=== PATIENT | female | born 1975 | race African-American/Black ===

== ENCOUNTER 2018-12-11 12:30 | Emergency (ER) | payer BC ==
[~2018-12-11] VITALS: Ht 162.6 cm; Wt 71.4 kg
[2018-12-11 12:33] VITALS: Ht 162.6 cm; Wt 71.4 kg
--- NOTE | 2018-12-11 12:54 | ERD ---
ER Documentation Chief Complaint Chief Complaint R side abd pain denies n/v since saturday This is a 43-year-old female with no significant past medical history who is presenting with 2 to 3 days of waxing and waning moderate sharp and aching right lower abdominal pain. She reports intermittent episodes of nausea but no vomiting. She is not currently nauseated. She has not had any diarrhea or constipation. She denies any black or bloody or tarry stools. She does not remember eating anything out of the ordinary. She denies dysuria or hematuria or urgency or frequency. She does not endorse any vaginal complaints. She did have a Pap smear this year and reports abnormal menses since then, but she is not currently with any vaginal bleeding. She does not endorse any vaginal burning or discharge or pain. The patient reports taking ibuprofen at home with some improvement. She does not recall any other alleviating or exacerbating factors. This is not happened before. The patient denies feeling sick recently. The patient denies fever or chills. The patient has had no headache or vision changes. The patient does not endorse neck or back pain. The patient denies lightheadedness or dizziness. The patient has had no chest pain or trouble breathing. The patient has had no focal deficits. The patient has had no weakness or numbness or tingling to the face or extremities. ROS All systems reviewed and are negative except as per history of present illness. Allergies Allergies: Coded Allergies: No Known Allergy (Unverified , 12/11/18) PMhx/Soc Medical and Surgical Hx: pt denies Medical Hx, pt denies Surgical Hx History of Surgery: No Hx Neurological Disorder: No Hx Respiratory Disorders: No Hx Cardiac Disorders: No Hx Psychiatric Problems: No Hx Miscellaneous Medical Probl: No Hx Alcohol Use: No Hx Substance Use: No Hx Tobacco Use: No FmHx Family History: No diabetes Physical Exam Vitals Vital Signs Date Temp Pulse Resp B/P (MAP) Pulse Ox O2 O2 Flow FiO2 Time Delivery Rate 12/11/18 97.6 61 20 130/69 100 12:33 (89) Physical Exam Const: No acute distress Head: Atraumatic Eyes: Normal Conjunctiva ENT: Normal External Ears, Nose and Mouth. Neck: Full range of motion. No meningismus. Resp: Clear to auscultation bilaterally Cardio: Regular rate and rhythm, no murmurs Abd: Soft, non distended. Right lower quadrant and suprapubic abdominal discomfort without exquisite tenderness. No rebound or guarding. Normal bowel sounds Skin: No petechiae or rashes Back: No midline or flank tenderness Ext: No cyanosis, or edema Neur: Awake and alert Psych: Normal Mood and Affect Result Diagram: 12/11/18 1313 12/11/18 1312 Results 24 hrs Laboratory Tests Test 12/11/18 13:12 12/11/18 13:13 12/11/18 13:22 Urine Color YELLOW Urine Clarity HAZY Urine pH 5 Urine Specific [place] 1.015 Urine Ketones NEGATIVE mg/dL Urine Nitrite NEGATIVE mg/dL Urine Bilirubin NEGATIVE mg/dL Urine Urobilinogen NEGATIVE mg/dL Urine Leukocyte Esterase 2+ Rolando/ul Urine Microscopic RBC 0-2 /HPF Urine Microscopic WBC 10-25 /HPF Urine Squamous Epithelial Cells FEW /HPF Urine Bacteria FEW /HPF Urine Mucus RARE /HPF Urine Hemoglobin NEGATIVE mg/dL Urine Glucose 1+ mg/dL Urine Total Protein NEGATIVE mg/dl Sodium Level 140 mmol/L Potassium Level 3.7 mmol/L Chloride Level 109 mmol/L Carbon Dioxide Level 23 mmol/L Anion Gap 8 Blood Urea Nitrogen 6 mg/dl Creatinine 0.76 mg/dl Est Glomerular Filtrat > 60 mL/min Rate mL/min Glucose Level 83 mg/dl Calcium Level 9.2 mg/dl Total Bilirubin 0.5 mg/dl Direct Bilirubin 0.00 mg/dl Indirect Bilirubin 0.5 mg/dl Aspartate Amino 45 IU/L Transf (AST/SGOT) Alanine 35 IU/L Aminotransferase (ALT/SGPT) Alkaline Phosphatase 113 IU/L Total Protein 8.3 g/dl Albumin 4.4 g/dl Globulin 3.90 g/dl Albumin/Globulin Ratio 1.12 Lipase 30 U/L White Blood Count 7.1 10^3/ul Red Blood Count 4.03 10^6/ul Hemoglobin 10.1 g/dl Hematocrit 33.0 % Mean Corpuscular Volume 81.9 fl Mean Corpuscular Hemoglobin 25.1 pg Mean Corpuscular 30.6 g/dl Hemoglobin Concent Red Cell Distribution Width 17.6 % Platelet Count 361 10^3/UL Mean Platelet Volume 10.1 fl Immature Granulocytes % 0.100 % Neutrophils % 67.3 % Lymphocytes % 25.2 % Monocytes % 6.4 % Eosinophils % 0.7 % Basophils % 0.3 % Nucleated Red Blood Cells % 0.0 /100WBC Immature Granulocytes # 0.010 10^3/ul Neutrophils # 4.8 10^3/ul Lymphocytes # 1.8 10^3/ul Monocytes # 0.5 10^3/ul Eosinophils # 0.1 10^3/ul Basophils # 0.0 10^3/ul Nucleated Red Blood Cells # 0.0 10^3/ul POC Beta HCG, Qualitative NEGATIVE Procedures/MDM MDM The patient's presentation warrants further investigation. Previous medical records, if available, were reviewed. LABS The patient's laboratory testing was obtained and reviewed. No emergent treatment was required unless described below. CBC: No E/o systemic infection or thrombocytopenia. Normocytic anemia, not emergent. Chemistry: No E/o severe acidosis or alkalosis or renal failure or liver disease or diabetic ketoacidosis Lipase: No E/o pancreatitis Urine: E/o acute infection without hematuria IMAGING Imaging and Radiology interpretation reviewed. US PELVIS FINDINGS: The uterus is anteverted in position and measures approximately 12.0 x 7.5 x 9.6 cm. There is a 5.0 cm intramural fibroid of the right side of the uterine body. There is a 5.3 cm intramural fibroid of the ventral aspect of the uterine body. Background uterine myometrium is heterogeneous. The endometrial complex is homogeneous in echogenicity and measures 12 mm in thickness. The cervix is normal. There is no free pelvic fluid. The right and left ovaries are symmetric in size with Doppler flow. The right ovary measures 3.5 x 2.0 x 4.1 cm (15 cc). The left ovary measures 2.3 x 1.6 x 1.3 cm (2.5 cc). There is a dominant 1.9 cm follicle within the right ovary. IMPRESSION: Enlarged heterogeneous fibroid uterus. Electronically viewed and signed by .Naomi Irwin MD, on 12/11/2018 15:40 TREATMENT/DISPOSITION The patient presents with right lower abdominal pain. The patient's abdominal exam is benign. She does not have any rebound or guarding. The patient's blood work is reassuring. I have very low suspicion for appendicitis at this time and I do not feel that CT imaging is required currently. The patient does not endorse any vaginal bleeding or burning or discharge or pain. I do not suspect a sexually transmitted infection or PID. A pelvic ultrasound was completed to assess for the possibility of ovarian cyst versus torsion. The ultrasound was reassuring. They did reveal an ovarian cyst and uterine fibroids. However, I do not suspect ovarian torsion. I have decreased suspicion for tubo-ovarian abscess. The patient's urinalysis is concerning for possible urinary tract infection. This will be treated in an outpatient setting. The patient does not have any evidence of peritonitis. The patient does not have clinical symptoms concerning for mesenteric ischemia or ischemic colitis. The patient does not have right upper quadrant tenderness, and I have low suspicion for gallstones, cholecystitis or biliary colic. The patient does not have any epigastric pain. I have low suspicion for gastritis, PUD or GERD. The patient does not have left upper quadrant tenderness. I have low suspicion for pancreatitis. The patient does not have any left lower quadrant tenderness, and I have low suspicion for diverticulosis or diverticulitis. The patient does not have any flank tenderness. The patient does not have gross hematuria. I have decreased suspicion for nephrolithiasis or renal colic. The patient does not have any palpable pulsatile mass or severe abdominal pain radiating to the back. I have low suspicion for aortic aneurysm, dissection or rupture. The patient was treated with Toradol in the emergency department. DISCHARGE Upon reevaluation of the patient, symptoms have improved. No emergent diagnoses were identified. At this time, I feel that the patient stable for discharge. The patient was instructed to follow-up with a primary care physician in 1-3 days. The patient will be given strict precautions with which to return to the emergency department. Prescriptions: Ibuprofen, Keflex The patient's blood pressure was elevated at greater than 120/80 while in the emergency department. The patient was otherwise stable with no evidence of hypertensive urgency or emergency. The patient does not require admission for blood pressure control. I have discussed with the patient the risks of hypertension. I have instructed the patient to return to the ER for any new or worsening symptoms including chest pain, shortness of breath, headache, blurred vision, confusion, nausea, vomiting or LOC. I have advised the patient to follow up with the primary care physician for outpatient monitoring and treatment for hypertension in 1-3 days. Disclaimer: Inadvertent spelling and grammatical errors are likely due to EHR/dictation software use and do not reflect on the overall quality of patient care. Note that the electronic time recorded on this note does not necessarily reflect the actual time of the patient encounter. Departure Diagnosis: Primary Impression: Abdominal pain Abdominal location: unspecified location Qualified Codes: R10.9 - Unspecified abdominal pain Additional Impressions: Urinary tract infection Urinary tract infection type: acute cystitis Hematuria presence: without hematuria Qualified Codes: N30.00 - Acute cystitis without hematuria Ovarian cyst Laterality: right Qualified Codes: N83.201 - Unspecified ovarian cyst, right side Uterine fibroid Uterine leiomyoma location: unspecified location Qualified Codes: D25.9 - Leiomyoma of uterus, unspecified Normocytic anemia Condition: Stable Patient Instructions: Abdominal Pain, Ovarian Cyst, Understanding Urinary Tract Infections (UTIs), Uterine Fibroids Additional Instructions: Thank you for for coming to [facility] for your care today. Please ask your nurse or provider if you have questions about your care today and do not leave until all your questions have been answered. Please use any medications given as directed and follow-up with your doctor (or the doctor you were referred to) in the next 1-3 days. If you do not have a primary care doctor you may follow up at the [facility] or [facility] clinic (listed below). You may also use motrin and tylenol as needed for fever and/or pain unless instructed otherwise by your provider or nurse. Indications for more urgent follow-up have been discussed, but you may return to the Emergency Department at ANY time for any worrisome or worsening symptoms. If you have abdominal pain, please know that no test or exam you received is perfect and you should follow up within 8 hours for continued pain. If you had any imaging studies today, such as an X-Ray or CT Scan, these studies will be reviewed later by a radiologist. You will be called if there are important findings that were not identified today, so make sure the contact information you provided at registration is correct. If you received any narcotic pain control medicine today, such as Vicodin, Morphine or Dilaudid, your coordination and judgment may be affected for a number of hours. Please do not drive or operate heavy machinery, and you may want someone to assist you at home. If you were given a prescription for narcotic medication, be aware that it is very addictive- use sparingly and only if necessary. PLEASE SEEK FURTHER EVALUATION AND MANAGEMENT AT YOUR DOCTORS OFFICE WITHIN THE NEXT 1-3 DAYS. IT IS YOUR RESPONSIBILITY TO MAKE AN APPOINTMENT FOR FOLOW-UP CARE. IF YOU HAVE A PRIMARY DOCTOR, PLEASE CALL THEIR OFFICE TO SCHEDULE AN APPOINTMENT FOR FOLLOW UP. IF YOU DO NOT HAVE A PRIMARY DOCTOR YOU CAN CALL OUR PHYSICIAN REFERRAL HOTLINE AT IF YOU CAN NOT AFFORD TO SEE A PHYSICIAN YOU CAN CHOSE FROM THE FOLLOWING [facility] CLINICS: [facility] [address] [facility] [address] [facility]. [facility] [address] [facility] [address] [facility] [address] [facility]. [facility]. [address] MELINDA GARCIA MD December 11, 2018 12:54
[2018-12-11] MEDS ORDERED: CEPH-443 PO (16:38)
[2018-12-11] MEDS ORDERED: IBUP-1542 PO (16:38)
[2018-12-11 16:50] VITALS: BP 110/76; PULSE 67; RESP 16
== END 2018-12-11 16:50 | disposition home or self-care (01) ==
LOC: E/R 12:30
DX: N30.00 Acute cystitis without hematuria (principal); N83.201 Unspecified ovarian cyst, right side; D25.9 Leiomyoma of uterus, unspecified; D64.9 Anemia, unspecified
CPT/HCPCS: 36415; 76830; 76856; 80053; 81001; 81025; 83690; 85025